=== PATIENT | female | born 1995 | race Caucasian/White ===

== ENCOUNTER 2017-12-15 18:20 | Emergency (ER) | payer OTHER ==
[~2017-12-15] VITALS: Ht 165.1 cm; Wt 58.5 kg
[2017-12-15 21:22] LABS: Urine Bacteria NONE SEEN /hpf (None Seen); Urine Blood 2+ /uL (Negative); Urine Mucus FEW (None Seen); Urine WBC 2 /hpf (0 - 5)
[2017-12-15 21:26] LABS: Urine Specific Gravity 1.048 (1.001-1.035)
[2017-12-15 23:08] VITALS: BP 130/72
[2017-12-15] MEDS ORDERED: HYDROcodone-ACET 10/325MG TAB PO ONE (23:15)
== END 2017-12-15 23:36 | disposition home or self-care (01) ==
LOC: ER 18:20
DX: M62.838 Other muscle spasm (principal); M25.512 Pain in left shoulder; R42 Dizziness and giddiness; V43.52XA Car driver injured in collision with other type car in traffic accident, initial encounter; Y93.89 Activity, other specified; Y92.89 Other specified places as the place of occurrence of the external cause; Y99.8 Other external cause status
CPT/HCPCS: 70450; 72125; 73030; 81001